=== PATIENT | female | born 1950 | race Caucasian/White ===

== ENCOUNTER → 2016-12-02 | Day surgery (SDC) | payer OTHER ==
[~2016-12-02] MED LIST: BUPIVACAINE HCL PF 0.75% 30 ML VIAL ONE; EPINEPHrine HCL (1:1000) 30 MG/30 ML VIAL OTHER ONE; LACTATED RINGER'S 1000 ML INJ 1,000 ML ONE; MIDAZOLAM HCL 5 MG/5 ML VIAL ONE; ONDANSETRON HCL 4 MG/2 ML VIAL IV PUSH ONE; PROPOFOL 100 MG/10 ML INJ IV ONE; ceFAZolin INJ 1,000 MG VIAL ONE
--- NOTE | 2016-12-02 21:47 | MP ---
cc: CARINE NUÑEZ DATE OF SURGERY 12/02/2016 DIAGNOSIS Left shoulder near full-thickness, partial rotator cuff tear with subacromial bursitis. POSTOPERATIVE DIAGNOSIS Left shoulder near full-thickness, partial rotator cuff tear with subacromial bursitis. SURGEON Dr. Carine Nuñez MD FIRE BOSS ROCHELLE Palafox The surgical procedure was assisted by my Advanced Registered Nurse Practitioner. My RADIO ELECTRICIAN presence was necessary throughout this case for the manipulation and positioning of the surgical extremity. My RADIO ELECTRICIAN was assisting me throughout the duration of this procedure. The skill set of an Advance Registered Nurse Practitioner was medically necessary to complete this procedure. During the surgical case, the surgical elastic knitter hand frame was working at the back table and the Advance Registered Nurse Practitioner was directly assisting me. PROCEDURE Left shoulder arthroscopic rotator cuff repair with subacromial decompression. ESTIMATED BLOOD LOSS Minimal. ANESTHESIA Regional anesthesia and general. PROCEDURE DETAILS The patient had regional anesthesia administered. She was brought back to operative theater. General anesthesia was administered. She was placed into a lateral decubitus position with an axillary roll and a well-padded down leg. She was placed in 10 pounds of traction. She received intravenous Ancef. The left upper extremity was prepped and draped in usual sterile fashion. We made standard posterior arthroscopic portal for diagnostic arthroscopy inside the joint. The glenohumeral joint showed very little chondromalacia. There was a little bit of synovitis at the base of the biceps tendon. Otherwise the biceps tendon was intact. From the undersurface rotator cuff looked like it was intact. There were no loose bodies in the subacromial space. The subscapularis tendon was intact. We then went into the subacromial space and made an accessory lateral portal. We found only mild subacromial bursitis from the subacromial decompression removing the bursa and very little bone needed to be removed from the undersurface of the acromion. The CA ligament was intact but did not seem to show significant signs of impingement. We found with gentle probing that there turned out to be about 90% partial thickness rotator cuff tear of the mid aspect of supraspinatus tendon. We completed the last 10% of fibers that were attached on the very medial footprint. We then debrided the bone using oscillating shaver and also a rasp to create a nice bloody bed. This allowed us to then do the repair on the rotator cuff which was accomplished using two Arthrex absorbable anchors. The most medial one had a single fiber tape applied. We cut the ends of the fiber tapes so that I could throw these individually into a horizontal mattress type of configuration. We used the scorpion to create this and then we laid down the ends into an anchor laterally getting excellent compression of the rotator cuff back into its anatomic position with the fiber tape. We took final arthroscopic pictures of the repair. The outside portals were closed with 2-0 Vicryl followed by 3-0 nylon. The patient placed a sling and swath. Postop plan is to follow standard rotator cuff repair protocol. MD SAMEER Shine/KK /2:50 PM /9:29 PM
== END | disposition home or self-care (01) ==
LOC: ESDC 12:21
PROVIDERS: ATTEND Orthopaedic Surgery
DX: M75.112 Incomplete rotator cuff tear or rupture of left shoulder, not specified as traumatic (principal); M75.52 Bursitis of left shoulder; E11.9 Type 2 diabetes mellitus without complications
CPT/HCPCS: 01630; 01991; 29826; 29827; 64417; 82948; C1713; J0171; J0690; J2250; J2405; J7120